=== PATIENT | male | born 2000 | race Hispanic/Latino ===

== ENCOUNTER 2021-08-04 04:49 | Emergency (ER) | payer OTHER ==
[2021-08-04 05:29] LABS: Basophils % 0.7 % (0-1.3); Hematocrit 47.8 % (39.6-49.0); MPV 8.4 fL (7.6-11.3); RBC Red Blood Cell Count 5.48 M/uL (4.33-5.43)
[2021-08-04 05:34] LABS: Protime INR 1.11
[2021-08-04 05:44] LABS: Urine Blood 3+ (Negative); Urine Glucose Negative (Negative); Urine Protein 2+ (Negative)
[2021-08-04 05:45] LABS: ALT/SGPT 70 U/L (12-78); AST/SGOT 38 U/L (15-37); Albumin 4.5 g/dL (3.4-5.0); Alkaline Phosphatase 119 U/L (45-117); BUN Blood Urea Nitrogen 6 mg/dL (7-18); Bicarbonate 22 mmol/L (21-32); Bilirubin Direct < 0.1 mg/dL (0-0.2); Bilirubin Total 0.3 mg/dL (0.2-1.0); Glucose Level 156 mg/dL (74-106); Potassium 3.7 mmol/L (3.5-5.1); Protein, Total 8.6 g/dL (6.4-8.2); Sodium Level 142 mmol/L (136-145)
[2021-08-04 06:11] LABS: Barbiturates NEGATIVE (NEGATIVE); Benzodiazepines NEGATIVE (NEGATIVE); Cocaine POSITIVE (NEGATIVE); METHAMPHETAM NEGATIVE (NEGATIVE); Methadone NEGATIVE (NEGATIVE); Opiates NEGATIVE (NEGATIVE); Phencyclidine NEGATIVE (NEGATIVE); THC Cannibis NEGATIVE (NEGATIVE)
[2021-08-04 06:31] LABS: Creatine Phosphokinase 187 U/L (39-308)
[2021-08-04] MEDS ORDERED: NA CHLORIDE 0.9% 1,000 ML ONE (06:32)
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
[2021-08-04 07:20] LABS: Troponin (Emerg Dept Use Only) < 0.02 ng/mL (0.0-0.045)
[2021-08-04 08:23] VITALS: O2SAT 100
[2021-08-04 08:26] VITALS: BP 119/66; TEMP 98.5
[2021-08-04] MEDS ORDERED: ONDANSETRON 4 MG/2 ML VIAL ONE (08:27)
[2021-08-04] MEDS ORDERED: MORPHINE 4 MG/ML SYR ONE (08:27)
--- NOTE | 2021-08-04 20:44 | RAD REPORT ---
EXAM DESCRIPTION: CT - Head C Spine Cap W Con - 08/04/2021 6:46 am ADDENDUM #1 THIS REPORT CONTAINS FINDINGS THAT MAY BE CRITICAL TO PATIENT CARE: The findings were communicated via telephone conference with Dr. Sheets on 08/04/2021 5:47 AM CDT. The results were acknowledged and understood. Electronically signed by: Larry Alex MD 08/04/2021 7:55 AM CDT End of Addendum EXAM DESCRIPTION: CT Head COMPARISON: None. CLINICAL HISTORY: [facility] TECHNIQUE: Axial images were obtained from skull base to vertex without intravenous contrast. Imag es viewed on bone and brain windows. Multiplanar reformats were performed. Automated exposure contr ol was utilized on this examination as a dose lowering technique. FINDINGS: Brain parenchyma, ventricles, dura, meninges, and extra-axial spaces: Ventricles and sulci are normal. No abnormal attenuation of brain parenchyma is present. No acute intracranial hemor rhage or abnormal extra-axial fluid collections are present. Vascular structures: No hyperdense arteries or veins. Calvarium, mastoid air cells, paranasal sinuses and orbits: The calvarium is normal. The mastoid air cells are clear. Visualized paranasal sinuses are unremarkable. Orbital structures are unremarkable. EXAM DESCRIPTION: CT Cervical Spine COMPARISON: None. CLINICAL HISTORY: [facility] TECHNIQUE: Axial CT images were obtained through the entire cervical spine without contrast. Sagit pedro and coronal reconstructions are provided. Automated exposure control was utilized on this examina tion as a dose lowering technique. FINDINGS: Vertebrae: There is an acute type II odontoid fracture with 2 mm anterior displacement o f the superior portion. Spinal canal, foramina, and facet joints: No significant spinal canal or foraminal stenoses. No significant facet arthropathy. Paraspinous soft-tissues: Normal. Thyroid: Normal. Other Findings: None. EXAM DESCRIPTION: CT Chest, Abdomen, and Pelvis COMPARISON: None. CLINICAL HISTORY: [facility] TECHNIQUE: CT images through the chest, abdomen, and pelvis following IV contrast. Multiplanar refor mats. Automated exposure control was utilized on this examination as a dose lowering technique. CT CHEST FINDINGS: Heart and mediastinum: Heart size is normal. No lymphadenopathy. Vascular: Unremarkable. Thyroid gland: Visualized portions are normal. Lungs: Mild bibasilar atelectasis. Airways: No filling defects. No bronchiectasis. Pleura: No pneumothorax. No significant pleural effusion. Musculoskeletal and soft tissues: Within normal limits for age. CT ABDOMEN & PELVIS FINDINGS: Liver: Normal. Gallbladder and biliary: Normal gallbladder. Unremarkable biliary tree. Pancreas: Normal. Spleen: Normal. Kidneys and adrenal glands: Normal adrenal glands. Normal kidneys Stomach and Small Bowel: The stomach and small bowel are normal. Urinary bladder: Normal. Prostate/Male Urogenital: Normal. Colon and Appendix: The colon is unremarkable. No evidence of appendicitis. Peritoneal cavity: No ascites or free air. Retroperitoneum and lymph nodes: Normal. Vascular: Unremarkable. Musculoskeletal and soft tissues: Soft tissues are unremarkable. No aggressive bone lesions. No c ompression fracture. IMPRESSION: HEAD IMPRESSION: No acute intracranial abnormality. C-SPINE IMPRESSION: Acute type II odontoid fracture. CHEST IMPRESSION: No acute chest process. ABDOMEN AND PELVIS IMPRESSION: No acute intra-abdominal abnormality. Electronically signed by: Larry Alex MD 08/04/2021 6:37 AM CDT Due to temporary technical issues with the PACS/Fluency reporting system, reports are being signed by the in house radiologists without review as a courtesy to insure prompt reporting. The interpreting radiologist is fully responsible for the content of the report.
--- NOTE | 2021-08-07 18:17 | EKG ---
Test Date: 2021-08-04 Test Time: 06:41:15 Pantograph Transferrer: BIRGIT MEASUREMENT RESULTS: Intervals: Rate: 124 WA: 142 QRSD: 82 QT: 308 QTc: 442 [place]: P: 44 WA: 142 QRS: 27 T: -13 INTERPRETIVE STATEMENTS: Sinus tachycardia T wave abnormality, consider inferior ischemia Abnormal ECG No previous ECG available for comparison Electronically Signed On 08-07-21 18:06:55 CDT by Antonio Eubanks
== END 2021-08-04 08:13 | disposition short-term general hospital (02) ==
LOC: ER 04:49
DX: S12.120A Other displaced dens fracture, initial encounter for closed fracture (principal); V49.50XA Passenger injured in collision with unspecified motor vehicles in traffic accident, initial encounter
CPT/HCPCS: 93005; 85025; 80048; 36415; 80320; 86900; 86850; 82550; 85610; 86901; 80076; 85730; 81003; 84484; 80307; 70450; 72125; 71260; 74177; 96375; 96374; 99285; Q9967; J7030; J2405; G0390